=== PATIENT | female | born 1955 | race Caucasian/White ===

== ENCOUNTER 2021-10-27 22:46 | Observation (INO) | payer MEDICARE ==
[~2021-10-27] VITALS: Ht 157.5 cm; Wt 54.4 kg
[~2021-10-27 22:46] MED LIST: MACROBID 100 M100 MG PO; TORADOL 10 MG T10 MG PO; ZOFRAN ODT 4 MG4 MG SL
[2021-10-28 00:15] LABS: HEMOGLOBIN 12.8 gm/dl (12.3-15.3); RED BLOOD COUNT 3.62 M/UL (4.00-5.10); WHITE BLOOD COUNT 8.3 K/UL (4.5-11.0)
[2021-10-28 00:39] LABS: BUN/CREATININE RATIO 11 (0-10)
[2021-10-28] MEDS ORDERED: LEVOTHYROXINE100 MCG PO (09:35)
[2021-10-28] MEDS ORDERED: ALLOPURINOL100 MG PO (09:35)
[2021-10-28] MEDS ORDERED: SPIRONOLACTONE100 MG PO (09:35)
[2021-10-28] MEDS ORDERED: URSODIOL250 MG PO (09:36)
[2021-10-28] MEDS ORDERED: VALACYCLOVIR500 MG PO (09:36)
[2021-10-28] MEDS ORDERED: BREO ELLIPTA 11 EACH INH (09:37)
[2021-10-28] MEDS ORDERED: DEXILANT60 MG PO (09:37)
[2021-10-28] MEDS ORDERED: POTASSIUM CHLO10 ME1 PO (09:37)
[2021-10-28] MEDS ORDERED: MAGNESIUM500 MG PO (09:38)
[2021-10-28] MEDS ORDERED: CENTRUM SILVER1 EAC4 PO (09:39)
[2021-10-29 05:30] LABS: HEMOGLOBIN 11.9 gm/dl (12.3-15.3); RED BLOOD COUNT 3.38 M/UL (4.00-5.10); WHITE BLOOD COUNT 8.3 K/UL (4.5-11.0)
[2021-10-29 05:45] LABS: BUN/CREATININE RATIO 9 (0-10)
[2021-10-29] MEDS ORDERED: BACTRIM DS TAB1 EACH PO (10:03)
[2021-10-29] MEDS ORDERED: KEFLEX CAP 250250 MG PO (12:09)
[2021-10-29] MEDS ORDERED: HYDROCODON-ACE1 EAC2 PO (13:15)
[2021-10-29] MEDS ORDERED: CLINDAMYCIN HC300 MG PO (14:30)
== END 2021-10-29 14:58 | disposition home or self-care (01) ==
LOC: ER1 22:46 → CDU 10-28 02:26 → M/S 10-28 02:26 → CDU 10-28 02:26 → M/S 10-28 08:28
PROVIDERS: Internal Medicine; Orthopaedic Surgery; Physician Assistant; ADMIT Internal Medicine
PROC: 0JQH0ZZ Repair Left Lower Arm Subcutaneous Tissue and Fascia, Open Approach (ICD-10-PCS; principal; 2021-10-29 11:05)
DX: S51.812A Laceration without foreign body of left forearm, initial encounter (principal); E87.6 Hypokalemia; E83.42 Hypomagnesemia; K21.9 Gastro-esophageal reflux disease without esophagitis; I10 Essential (primary) hypertension; Z23 Encounter for immunization; E03.9 Hypothyroidism, unspecified; M10.9 Gout, unspecified; J45.909 Unspecified asthma, uncomplicated; M47.9 Spondylosis, unspecified; Z79.899 Other long term (current) drug therapy; Z79.51 Long term (current) use of inhaled steroids; Z79.890 Hormone replacement therapy; Z88.2 Allergy status to sulfonamides; W55.12XA Struck by horse, initial encounter; Y92.79 Other farm location as the place of occurrence of the external cause
CPT/HCPCS: 70450; 71045; 72125; 73090; 80053; 80202; 82550; 83036; 83540; 83550; 83605; 83735; 83880; 84132; 85025; 85027; 85652; 86140; 87040; 87070; 87205; 90471; 90715; 96374; 96375; 96376; 99285; G0378; J0690; J1100; J2001; J2270; J2405; J2543; J2704; J3010; J3370; J3480; J7030; J7070; J7120

== ENCOUNTER → 2021-11-17 | Day surgery (SDC) | payer MEDICARE ==
[~2021-11-17] VITALS: Ht 157.5 cm; Wt 59.0 kg
[~2021-11-17] MED LIST changes: +ALLOPURINOL100 MG PO; +BACTRIM DS TAB1 EACH PO; +BREO ELLIPTA 11 EACH INH; +CENTRUM SILVER1 EAC4 PO; +CEPHALEXIN500 MG PO; +CLINDAMYCIN HC300 MG PO; +DEXILANT60 MG PO; +DEXLANSOPRAZOLE60 MG PO; +GABAPENTIN300 MG PO; +HYDROCODON-ACE1 EAC2 PO; +KEFLEX CAP 250250 MG PO; +LEVOTHYROXINE100 MCG PO; +MAGNESIUM500 MG PO; +POTASSIUM CHLO10 ME1 PO; +SPIRONOLACTONE100 MG PO; +SYNTHROID25 MCG PO; +URSODIOL250 MG PO; +VALACYCLOVIR500 MG PO
[2021-11-17 09:35] LABS: BUN/CREATININE RATIO 14 (0-10)
== END | disposition home or self-care (01) ==
LOC: OR 07:40
PROVIDERS: Orthopaedic Surgery
DX: T81.33XA Disruption of traumatic injury wound repair, initial encounter (principal); I10 Essential (primary) hypertension; E03.9 Hypothyroidism, unspecified; J45.909 Unspecified asthma, uncomplicated; Z88.2 Allergy status to sulfonamides; Z79.899 Other long term (current) drug therapy
CPT/HCPCS: 80048; 93005; J1100; J1170; J1885; J2250; J2405; J2440; J2704; J3370